=== PATIENT | female | born 1950 | race Two or more races ===

== ENCOUNTER → 2017-05-09 10:47 | Outpatient (CLI) | payer OTHER, SELFPAY ==
[2017-05-09 11:06] VITALS: BP 121/67; PULSE 77; RESP 18; TEMP 35.9; O2SAT 99; BMI 22.4
[2017-05-09 12:06] VITALS: BP 92/54; PULSE 70; RESP 16; TEMP 36.8; O2SAT 98
[2017-05-09 13:06] VITALS: BP 110/62; PULSE 80; RESP 18; TEMP 36.2; O2SAT 100
[2017-05-09 13:51] VITALS: BP 101/52; PULSE 86; RESP 16; TEMP 36.9; O2SAT 99
== END ==
PROVIDERS: Family Provider Family Medicine; PCP Family Medicine; Visit Provider Internal Medicine Hematology & Oncology
DX: D46.9 Myelodysplastic syndrome, unspecified (principal)
CPT/HCPCS: 36430; 86644; 86850; 86900; 86920; J7040; P9040; A4216

== ENCOUNTER → 2017-06-10 11:07 | Outpatient (CLI) | payer OTHER, SELFPAY ==
[2017-06-10 11:30] VITALS: BP 118/57; PULSE 90; RESP 16; TEMP 37.1; O2SAT 100; BMI 21.4
[2017-06-10 11:52] VITALS: BP 98/56; PULSE 77; RESP 16; TEMP 36.7
[2017-06-10 12:52] VITALS: BP 99/52; PULSE 79; RESP 16; TEMP 36.3; O2SAT 100
[2017-06-10 13:19] VITALS: BP 102/50; PULSE 81; RESP 14; TEMP 36.3; O2SAT 100
== END ==
PROVIDERS: Family Provider Family Medicine; PCP Family Medicine; Visit Provider Internal Medicine Hematology & Oncology
DX: D46.9 Myelodysplastic syndrome, unspecified (principal)
CPT/HCPCS: 36430; 86644; 86850; 86900; 86920; J7040; P9040; A4216

== ENCOUNTER → 2017-08-05 08:09 | Outpatient (CLI) | payer OTHER, SELFPAY ==
[2017-08-05] VITALS (7 sets, daily range): BP systolic 92–105; BP diastolic 46–61; PULSE 58–78; RESP 16; TEMP 36.3–37.2; O2SAT 96–100; BMI 21.1
== END ==
PROVIDERS: Family Provider Family Medicine; PCP Family Medicine; Visit Provider Internal Medicine Hematology & Oncology
DX: D46.Z Other myelodysplastic syndromes (principal)
CPT/HCPCS: 36430; 86644; 86850; 86900; 86920; J7040; P9040; A4216